=== PATIENT | male | born 1985 | race Caucasian/White ===

== ENCOUNTER 2022-11-27 20:40 | Emergency (ER) | payer OTHER ==
[~2022-11-27] VITALS: Ht 170.2 cm; Wt 220.9 kg
[2022-11-27 20:51] VITALS: BP_SYST 117
--- NOTE | 2022-11-27 21:01 | NUR ---
Patient to [facility] for evaluation.
--- NOTE | 2022-11-27 21:02 | NUR ---
PATIENT REPORTS FEELING TEAR UNDER LEFT BREAST AFTER STRETCHING. DENIES ANY PAIN. -SOB
[2022-11-27] MEDS ORDERED: KETOROLAC TROMETHAMINE 30 MG VIAL IM ONE (21:15)
[2022-11-27] MEDS ORDERED: LIDOCAINE PATCH 5% 1 EA TP ONE (21:15)
--- NOTE | 2022-11-27 21:22 | NUR ---
ER at bedside examining patient.
[2022-11-27] MEDS ORDERED: IBUP-1969 PO (22:04)
[2022-11-27] MEDS ORDERED: LIDO1ADH77 TP (22:04)
[2022-11-27 22:18] VITALS: BP_SYST 116
--- NOTE | 2022-11-27 22:18 | NUR ---
Patient given written and verbal discharge instructions and verbalizes understanding. ER MD discussed with patient the results and treatment provided. Patient in stable condition. ID arm band removed. Rx of IBUPROFEN AND LIDOCAINE given. Patient educated on pain management and to follow up with PMD. Pain Scale 0/10 Opportunity for questions provided and answered. Medication side effect fact sheet provided.
== END 2022-11-27 22:18 | disposition home or self-care (01) ==
LOC: SED 20:40
DX: S29.011A Strain of muscle and tendon of front wall of thorax, initial encounter (principal); Z79.899 Other long term (current) drug therapy; X50.3XXA Overexertion from repetitive movements, initial encounter; Y93.89 Activity, other specified; Y92.89 Other specified places as the place of occurrence of the external cause; Y99.8 Other external cause status
CPT/HCPCS: 71045; 99283

== ENCOUNTER 2023-04-11 18:49 | Emergency (ER) | payer OTHER ==
[~2023-04-11] VITALS: Ht 167.6 cm; Wt 217.7 kg
[~2023-04-11 18:49] MED LIST: IBUP-1969 PO; LIDO1ADH77 TP
[2023-04-11 18:59] VITALS: BP_SYST 135; PULSE 89; RESP 24; TEMP 97.8; O2SAT 98
[2023-04-11] MEDS ORDERED: IBUP-1971 PO (22:08)
[2023-04-11] MEDS ORDERED: DICL20GE TP (22:08)
[2023-04-11 22:15] VITALS: BP_SYST 147; PULSE 95; RESP 20; TEMP 97.7; O2SAT 95
== END 2023-04-11 22:15 | disposition home or self-care (01) ==
LOC: SED 18:49
DX: S86.812A Strain of other muscle(s) and tendon(s) at lower leg level, left leg, initial encounter (principal); Z79.899 Other long term (current) drug therapy; X50.1XXA Overexertion from prolonged static or awkward postures, initial encounter; Y93.89 Activity, other specified; Y92.89 Other specified places as the place of occurrence of the external cause; Y99.8 Other external cause status
CPT/HCPCS: 93971; 99284

== ENCOUNTER 2023-04-13 17:46 | Emergency (ER) | payer OTHER ==
[~2023-04-13] VITALS: Ht 170.2 cm; Wt 223.6 kg
[~2023-04-13 17:46] MED LIST changes: +DICL20GE TP; +IBUP-1971 PO
[2023-04-13 17:57] VITALS: BP_SYST 161; PULSE 93; RESP 18; TEMP 98.3; O2SAT 96
[2023-04-13 19:49] LABS: BASOPHILS % (AUTO) 0.7 % (0.0-2.0); EOSINOPHILS # (AUTO) 0.1 K/uL (0.0-0.4); EOSINOPHILS % (AUTO) 1.7 % (0.0-4.0); HEMATOCRIT 44.7 % (36-54); HEMOGLOBIN 14.8 g/dL (14.0-18.0); LYMPHOCYTES # (AUTO) 2.1 K/uL (1.0-5.5); LYMPHOCYTES % (AUTO) 32.4 % (20.5-51.5); MEAN CORPUSCULAR HEMOGLOBIN 31 pg (27-31); MEAN CORPUSCULAR HGB CONC 33 % (32-36); MEAN CORPUSCULAR VOLUME 93 fL (79.0-98.0); MONOCYTES # (AUTO) 0.5 K/uL (0.0-1.0); NEUTROPHILS # (AUTO) 3.7 K/uL (1.8-7.7); NEUTROPHILS % (AUTO) 57.2 % (40.0-70.0); PLATELET COUNT (AUTO) 240 K/uL (130-430); RED BLOOD CELL COUNT(AUTO) 4.83 MIL/uL (4.2-6.2); RED CELL DISTRIBUTION WIDTH 14.3 % (9.0-15.0); WHITE BLOOD COUNT (AUTO) 6.5 K/uL (4.8-10.8)
[2023-04-13 19:59] LABS: CALCIUM 9.1 mg/dL (8.4-11.0); CREATININE 0.71 mg/dL (0.55-1.30); POTASSIUM 4.6 mmol/L (3.5-5.1)
[2023-04-13 20:18] LABS: ALBUMIN 3.3 g/dL (3.4-4.8); TOTAL BILIRUBIN 0.4 mg/dL (0.0-1.0); TOTAL PROTEIN, SERUM 7.8 g/dL (6.4-8.3)
[2023-04-13] MEDS ORDERED: CLIN-142 PO (20:45)
[2023-04-13 20:55] VITALS: BP_SYST 158; PULSE 88; RESP 16; TEMP 98.3; O2SAT 99
[2023-04-13] MEDS ORDERED: CLINDAMYCIN HCL 150 MG CAPSULE PO ONE (21:00)
== END 2023-04-13 20:55 | disposition home or self-care (01) ==
LOC: SED 17:46
DX: L03.116 Cellulitis of left lower limb (principal); M79.662 Pain in left lower leg; Z79.899 Other long term (current) drug therapy
CPT/HCPCS: 36415; 73590-TC; 80053; 83605; 85025; 99284